=== PATIENT | female | born 1935 | race Caucasian/White ===

== ENCOUNTER 2018-02-18 15:11 | Inpatient (IN) | payer MEDICARE, OTHER ==
[2018-02-18] MEDS ORDERED: Ondansetron HCl/PF 4 MG/2 ML Vial ONE ×2 (15:36→16:49)
--- NOTE | 2018-02-18 16:16 | RAD ---
SINGLE VIEW OF THE PELVIS: Comparison: None. History: Fall with hip pain. FINDINGS: Single view of the pelvis shows a fracture of the right femoral neck. No dislocation or the femoral h ead is seen. No degenerative changes are seen in either hip. IMPRESSION: Right femoral neck fracture. POS: [facility]
--- NOTE | 2018-02-18 16:21 | RAD ---
TWO VIEWS RIGHT HIP: History: Fall, right hip injury. FINDINGS: AP and frogleg views of the right hip obtained and demonstrates an acute subcapital left femoral neck fracture. There is some mild lateral displacement of the distal fracture fragment. IMPRESSION: Right subcapital right femoral neck fracture. POS: [facility]
[2018-02-18 16:47] LABS: #Basophils 0.1 thou/uL (0.0-0.2); #Lymphocytes 1.4 thou/uL (1.20-3.40); #Monocytes 0.5 thou/uL (0.11-0.59); #Neutrophils 8.6 thou/uL (1.40-6.50); %Basophils 0.5 % (0.0-1.0); %Eosinophils 0.4 % (0.0-10.0); %Lymphocytes 13.3 % (21.0-51.0); %Monocytes 4.6 % (0.0-10.0); %Neutrophils 81.1 % (42.0-75.0); Hemoglobin 13.6 g/dL (12.0-16.0); Mean Corpuscular HGB CONC 33.2 g/dL (32.0-36.0); Mean Corpuscular Hemoglobin 30.9 pg (27.0-31.0); Mean Corpuscular Volume 92.9 fL (78.0-98.0); Mean Platelet Volume 7.3 fL (7.4-10.4); Platelet Count 220 thou/uL (130-400); RBC Distribution Width 12.2 % (11.5-14.5); Red Blood Cell (RBC) Count 4.39 mill/uL (4.20-5.40); White Blood Cell (WBC) Count 10.5 thou/uL (4.8-10.8)
[2018-02-18] MEDS ORDERED: Dextrose 50% Abboject 50 ML SYRINGE SLOW IVP PRN (16:48)
[2018-02-18] MEDS ORDERED: Ondansetron HCl/PF 4 MG/2 ML Vial IVP PRN (16:48)
[2018-02-18] MEDS ORDERED: Dextrose 5% in Water 1,000 ML IV PRN (16:48)
[2018-02-18] MEDS ORDERED: Promethazine HCl 25 MG/ML VIAL IM PRN (16:48)
[2018-02-18] MEDS ORDERED: traMADol HCl 50 MG TAB PO PRN (16:51)
[2018-02-18 16:54] LABS: INR-International Normal Ratio 0.9; PTT 28.9 SEC (22.9-36.1); Prothrombin Time 12.5 SEC (12.0-14.7)
[2018-02-18 17:10] LABS: ALT (SGPT) 22 U/L (8-55); AST (SGOT) 23 U/L (5-34); Albumin 3.9 g/dL (3.4-4.8); Alkaline Phosphatase 92 U/L (40-150); Anion Gap 14 mmol/L (10-20); BUN (Urea Nitrogen) 21 mg/dL (9.8-20.1); Bilirubin, Total 0.4 mg/dL (0.2-1.2); Calc. Creatinine Clearance 0 mL/min (70-130); Calcium 9.2 mg/dL (7.8-10.44); Carbon Dioxide 27 mmol/L (23-31); Chloride 102 mmol/L (98-107); Estimated GFR-MDRD 65; Globulin 2.8 g/dL (2.4-3.5); Glucose 170 mg/dL (83-110); Potassium 3.4 mmol/L (3.5-5.1); Protein, Total 6.7 g/dL (6.0-8.3); Sodium 140 mmol/L (136-145)
--- NOTE | 2018-02-18 17:27 | RAD ---
CHEST ONE VIEW: 02/18/18 HISTORY: Preop. COMPARISON: None. FINDINGS: There is mild fullness in the right hilum. Heart size is upper limits of normal. Scarring in lingula. No pneumothorax or effusion. IMPRESSION: Fullness of the right hilum may reflect adenopathy, enlarged pulmonary trunk or less likely mass. Non emergent followup CT of the chest may be beneficial. POS: [facility]
[2018-02-18] MEDS ORDERED: CEFAZOLIN/Water 2 GM/20 ML SYRINGE SLOW IVP SCH (18:00)
[2018-02-18] MEDS ORDERED: Potassium Chloride 40 MEQ in Sodium Chloride 0.9% 500 ML IVPB SCH (18:45)
[2018-02-18] MEDS: Scopolamine 1.5 mg/72 hour Patch TD SCH (18:46)
[2018-02-18] MEDS: Acetaminophen 1,000 MG in Premix Bag 1 BAG IVPB SCH (18:47)
[2018-02-18] MEDS: Ketorolac Tromethamine 30 MG/ML VIAL IVP SCH (18:47)
[2018-02-18] MEDS: Sodium Chloride 0.9% 1,000 ML IV SCH (18:56)
--- NOTE | 2018-02-18 23:42 | HP ---
DATE OF ADMISSION: 02/18/2018 ADMITTING PHYSICIAN: Jayro Smith D.O. CONSULTING PHYSICIAN: Dr. Greene, Orthopedics. HISTORY OF PRESENT ILLNESS: Ms. Saenz is an 83-year-old female who reports she was ambulating in her home when her foot got hung on a table leg and she fell to the floor, injuring her right hip. S he denies LOC. She denies any other complaint or injury. She was transported to [facility] where workup identified a right femoral neck fracture. Trauma Services has been consult ed for admission and management. Orthopedic Services has been consulted for management of fracture. PAST MEDICAL HISTORY: Hypertension. PAST SURGICAL HISTORY: Hysterectomy. SOCIAL HISTORY: Tobacco none. Alcohol none. Drugs none. CURRENT MEDICATIONS: Unknown antihypertensive/diuretic medication. ALLERGIES: CODEINE. DIAGNOSTIC IMAGING: Right femoral neck fracture. LABORATORY STUDIES: CBC: WBC 10.5, RBC 4.39, hemoglobin 13.6, hematocrit 40.8, platelets 220. Coag ulation: PT 12.5, INR 0.9. Chemistry: Sodium 140, potassium 3.4, chloride 102, carbon dioxide 27, BUN 21, creatinine 0.83, glucose 170, calcium 9.2. REVIEW OF SYSTEMS: Constitutional: Negative for fever, chills, generalized malaise, or recent weigh t loss. HEENT: Denies otorrhea, rhinorrhea, neck pain, or sore throat. Cardiovascular: Denies syn cope, palpitations, or chest pain. Respiratory: Denies wheezing, cough, or respiratory distress. G astrointestinal: Denies abdominal pain, nausea, vomiting, diarrhea, or constipation. Musculoskeleta l: Reports pain to right hip with movement. Reports fall. Genitourinary: Denies hematuria, dysuri a. Skin: Denies rashes, skin changes. Neurologic: Denies headache, focal weakness, or seizures. PHYSICAL EXAMINATION: VITAL SIGNS: Blood pressure 134/66, pulse 66, respirations 20, O2 saturation 97% room air. CONSTITUTIONAL: Well-developed, well-nourished female in no acute distress. HEENT: Atraumatic, normocephalic. Trachea midline. No posterior neck tenderness. RESPIRATORY: Bilateral breath sounds clear. Chest movement symmetrical. CARDIOVASCULAR: Regular rate and rhythm. Heart sounds normal. ABDOMEN: Soft, nontender, nondistended. Tenderness to right hip with palpation or movement. EXTREMITIES: Moves all extremities. Cap refill brisk. 2+ pulses all extremities. NEUROLOGIC: GCS 15, alert and oriented x3. SKIN: Warm, dry, normal in color. ASSESSMENT: 1. Status post mechanical fall. 2. Right femoral neck fracture. 3. Acute traumatic pain. 4. History of hypertension. PLAN: 1. Admit to surgical floor by Trauma Services. 2. Consult to Orthopedics. Discussed with Dr. Greene. Plans for OR tomorrow. 3. N.p.o. after midnight. 4. Reconcile home medications. 5. IV analgesia. 6. Antibiotics per Orthopedic Service. 7. Replace electrolytes as indicated. 8. Scopolamine patch for dizziness when moving. 9. PT, OT consult with orthopedic restrictions postoperatively. 10. Rehab referral. The patient was seen and examined with Dr. Smith who agrees with plan.
[2018-02-19] MEDS: Acetaminophen 1,000 MG in Premix Bag 1 BAG IVPB SCH ×4 (00:05→17:37)
[2018-02-19] MEDS: Ketorolac Tromethamine 30 MG/ML VIAL IVP SCH ×4 (00:05→17:37)
[2018-02-19 04:32] VITALS: BMI 31.2
[2018-02-19 06:05] LABS: Anion Gap 12 mmol/L (10-20); BUN (Urea Nitrogen) 21 mg/dL (9.8-20.1); Calc. Creatinine Clearance 67 mL/min (70-130); Calcium 8.5 mg/dL (7.8-10.44); Carbon Dioxide 25 mmol/L (23-31); Chloride 104 mmol/L (98-107); Estimated GFR-MDRD 69; Glucose 102 mg/dL (83-110); Potassium 4.5 mmol/L (3.5-5.1); Sodium 136 mmol/L (136-145)
[2018-02-19] MEDS: Sodium Chloride 0.9% 1,000 ML IV SCH ×2 (07:58→13:34)
[2018-02-19] MEDS ORDERED: Prevnar 13-Val Conj/PF 0.5 ML SYRINGE IM ONE (08:30)
--- NOTE | 2018-02-19 08:38 | CON ---
DATE OF CONSULTATION: 02/19/2018 ORTHOPEDIC CONSULTATION REQUESTING PHYSICIAN: Dr. Jayro Smith. BRIEF HISTORY OF PRESENT ILLNESS: Patient is a pleasant 83-year-old lady who [facility] with family at bedside. They report that earlier on the day of 02/18/2018, she caught he r foot on the leg of a table and sustained a fall landing on her right hip. She denies loss of consc iousness or head injury. Upon arrival at [place], her sole complaint was that of right groin pain . Workup included plain x-rays that demonstrated a displaced femoral neck fracture. As such, the pa tient now admitted to the Trauma Service and Orthopedic consultation requested. PAST MEDICAL HISTORY: Hypertension. PAST SURGICAL HISTORY: Hysterectomy. MEDICATIONS: She is on an antihypertensive and diuretic medication of unknown name. ALLERGIES: CODEINE. SOCIAL HISTORY: She denies history of smoking. Denies alcohol or drug use. REVIEW OF SYSTEMS: Denies recent fevers, chills or sweats. Denies chest pain or shortness of breath . Denies numbness or tingling in the lower extremity. FAMILY HISTORY: Noncontributory. PHYSICAL EXAMINATION: VITAL SIGNS: Temperature of 98.3 degrees, heart rate of 66, respiratory rate of 20, and blood pressu re 134/66. HEENT: Atraumatic, normocephalic. HEART: Shows a regular rate and rhythm without murmur. LUNGS: Clear to auscultation with good breath sounds bilaterally. Chest wall is nontender. ABDOMEN: Soft and nontender with normal bowel sounds. PELVIS: Stable to compression. With compression she does complain of some mild right groin pain. EXTREMITIES: Bilateral upper extremities atraumatic; left lower extremity also atraumatic at hip, kn ee and ankle. The right lower extremity is held in a slightly shortened and externally rotated postu re at the hip. She has groin pain with any movement of the leg. The knee is without effusion and ap pears atraumatic as is the ankle and foot. She is wiggling her toes. Her thigh and lower leg compar tments are soft. IMAGING DATA: AP pelvis and AP lateral x-ray of the right hip was obtained today and is remarkable f or a displaced femoral neck fracture with discontinuity between the neck and head. This is subcapita l fracture. LABORATORY DATA: White count of 10.5, hematocrit of 40.8 and 220,000 platelets. ASSESSMENT: An 83-year-old lady with history of ground level fall sustaining a right femoral neck fr acture. PLAN: At this time, patient will be admitted to Trauma Services. Our plan is to proceed to the oper ating room on 02/19/2018 for a right hip hemiarthroplasty. I have discussed with patient and her fam salvador risks and benefits of the surgery. Risks include but are not limited to bleeding, infection, ner ve injury, DVT, PE, dislocation, loss of limb or life. They appear to understand and do wish to proc eed. Consent will be obtained prior to surgery.
[2018-02-19] MEDS ORDERED: CEFAZOLIN/Water 2 GM/20 ML SYRINGE ONE (12:46)
[2018-02-19] MEDS ORDERED: Ketorolac Tromethamine 30 MG/ML VIAL ONE (12:46)
[2018-02-19] MEDS ORDERED: Fentanyl 100 MCG/2 ML VIAL ONE (13:39)
--- NOTE | 2018-02-19 13:41 | PRG ---
DATE OF SERVICE: 02/19/2018 ATTENDING PHYSICIAN: Dr. Jayro Smith. SUBJECTIVE: Ms. Saenz is an 83-year-old female, who was in her usual state of health yesterday w hen she was ambulatory through her kitchen floor and caught her foot on the leg of a table and sustai bere a fall landing on her right hip. She was evaluated in the emergency department and a right femor al neck fracture was identified. She was admitted to the hospital by Trauma Services. Dr. Greene, Orthopedics, was consulted and plans to take the patient to the OR today for fixation of the fractur e. OBJECTIVE: VITAL SIGNS: Temperature 98.4, pulse 69, respirations 14, O2 sat 94% on 1 liter nasal cannula, blood pressure 109/64. CONSTITUTIONAL: Elderly female, lying in bed in no acute distress. HEENT: Atraumatic, normocephalic. PULMONARY: Bilateral breath sounds clear. No respiratory distress. Incentive spirometer volumes ap proximately 1250. CARDIOVASCULAR: Regular rate and rhythm. ABDOMEN: Soft, nontender, nondistended. MUSCULOSKELETAL: Pain with movement of right hip and leg. Cap refill brisk in all extremities. A 2 + pulses all extremities. NEUROLOGIC: GCS of 15. Awake, alert, oriented x3. ASSESSMENT: An 83-year-old female with, 1. Ground-level fall. 2. Right femoral neck fracture. 3. Acute traumatic pain. 4. History of hypertension. PLAN: 1. Dr. Greene plans to take patient to OR today for fixation of fracture. 2. IV fluids, n.p.o. 3. Continue IV analgesia. We will transition to oral analgesia postoperatively. 4. PT/OT with orthopedic restrictions postoperatively. 5. SCDs for DVT prophylaxis. 6. Antibiotics per Orthopedic Service. 7. Case management for discharge planning. Rehab referral sent. The patient was seen and examined with Dr. Smith, who agrees with the plan.
[2018-02-19] MEDS ORDERED: Promethazine HCl 25 MG/ML VIAL IM PRN ×2 (14:56)
[2018-02-19] MEDS ORDERED: Promethazine HCl 25 MG/ML VIAL SLOW IVP PRN ×2 (14:56)
[2018-02-19] MEDS ORDERED: Ondansetron HCl/PF 4 MG/2 ML Vial IVP PRN ×2 (14:56)
--- NOTE | 2018-02-19 16:08 | OP ---
DATE OF SURGERY: 02/19/2018 PREOPERATIVE DIAGNOSIS: Right femoral neck fracture. POSTOPERATIVE DIAGNOSIS: Right femoral neck fracture. SURGICAL PROCEDURE: Right hip hemiarthroplasty. ANESTHESIA: General. SURGEON: Chencho Greene M.D. FELT CARBONIZER: Rhianna Madrid PA-C and Chris Nuñez PA-C. BLOOD LOSS: 200 mL. IMPLANTS: DePuy system was used with a Lytle size 5 stem, a 28 x 48 bipolar cup and a +8.5 mm head. COMPLICATIONS: None. DRAINS: None. SPECIMEN: None. OUTCOME: Stable hip hemiarthroplasty. INDICATIONS: The patient is an 83-year-old lady status post ground level fall sustaining a left femo ral neck fracture with displacement. After discussion with family and patient, including risks and b enefits, we decided to proceed with hemiarthroplasty to allow for early mobilization. Informed conse nt has been obtained. I believe all questions answered. DESCRIPTION OF PROCEDURE: The patient was brought to the operating room and a timeout performed foll owed by induction of general anesthesia. Next, patient was positioned in a left lateral decubitus po sition on the OR table and then a sterile prep and drape was performed of the right lower extremity. Next, a lateral incision was made centered over the greater trochanter. After skin was sharply inci sed, dissection was carried down bluntly to the underlying fascia patti and tensor fascia. This struc ture was incised in line with the skin incision and reflected anteriorly and posteriorly exposing the greater trochanteric bursa. The trochanteric bursa was swept off of the posterior proximal femur ex posing the short external rotators. Next, the piriformis was identified, tagged and released and ref lected posteriorly along with the superior and inferior gemelli. A retractor was placed under the ab ductors and then a cobra retractor placed in this allowing for exposure of the capsule. Next, a T ca psulotomy was performed and the hip was dislocated. An oscillating saw was used to make a femoral ne ck cut and then the head of the femur was removed. Next, a box chisel was used to obtain a starting point at the proximal femur. This was followed by T-handle awl followed by lateralizing reamer. Pro gressive T handle kumari were passed down the shaft of the femur up to a size 5. Broaching was starte d at size 3 and continued up to size 5, which provided good fit and fill. A trial reduction was then performed on the size 5 stem and a +8.5 head provided reasonable religion of leg length and good stability. The hip was then dislocated once again and the trial components were removed. The proxim al femur was irrigated with 3 liters of normal saline using Pulsavac and then the final implant was i nserted followed by placement of the bipolar head. The hip was then reduced and again found to have excellent stability. At this point, #2 Vicryl was used to reapproximate the capsule followed by #2 V icryl for the piriformis tendon. A #1 Vicryl was used for the fascia patti and tensor fascia followed by 0 Vicryl for Rosibel fascia, 2-0 Vicryl subcutaneously, and chandra for the skin. A Xeroform gauz e tape dressing was applied to the thigh and then patient was transferred to recovery room in stable condition. There were no complications. She tolerated the procedure well.
--- NOTE | 2018-02-19 17:30 | RAD ---
TWO VIEWS RIGHT HIP: 02/19/18 HISTORY: Postoperative changes. Hip fracture. COMPARISON: 02/18/18. FINDINGS: There has been interval postsurgical changes related to placement of a right total hip prosthesis. No hardware complication is seen. There is no fracture or dislocation. Subcutaneous emphysema is seen a bout the right hip and skin clips are seen laterally. No other findings. IMPRESSION: Postsurgical changes related to placement of right total hip prosthesis. POS: [facility]
[2018-02-19] MEDS: CEFAZOLIN/Water 2 GM/20 ML SYRINGE SLOW IVP SCH (21:26)
[2018-02-19] MEDS ORDERED: CEFAZOLIN 2 GM in Sodium Chloride 0.9% 100 ML IVPB SCH (22:00)
[2018-02-20] MEDS: Ketorolac Tromethamine 30 MG/ML VIAL IVP SCH ×3 (01:14→12:01)
[2018-02-20] MEDS: Sodium Chloride 0.9% 1,000 ML IV SCH (01:19)
[2018-02-20] MEDS: CEFAZOLIN/Water 2 GM/20 ML SYRINGE SLOW IVP SCH (06:07)
[2018-02-20 10:53] LABS: #Lymphocytes 0.8 thou/uL (1.20-3.40); #Monocytes 0.7 thou/uL (0.11-0.59); #Neutrophils 14.2 thou/uL (1.40-6.50); %Lymphocytes 4.8 % (21.0-51.0); %Monocytes 4.2 % (0.0-10.0); Hemoglobin 12.1 g/dL (12.0-16.0); Mean Corpuscular HGB CONC 33.2 g/dL (32.0-36.0); Mean Corpuscular Volume 93.2 fL (78.0-98.0); Mean Platelet Volume 7.3 fL (7.4-10.4); Platelet Count 193 thou/uL (130-400); RBC Distribution Width 12.5 % (11.5-14.5); Red Blood Cell (RBC) Count 3.92 mill/uL (4.20-5.40); White Blood Cell (WBC) Count 15.6 thou/uL (4.8-10.8)
[2018-02-20] MEDS ORDERED: Acetaminophen 325 MG TAB PO PRN (16:04)
--- NOTE | 2018-02-20 19:41 | PRG ---
DATE OF SERVICE: 02/20/2018 SUBJECTIVE: The patient is postop day #1 status post right hip hemiarthroplasty, which she sustained after falling at ground level. She underwent the above procedure yesterday and tolerated this proce dure well today. She is awaiting to work with physical and occupational therapy. She is tolerating a diet and her pain is controlled. She had no reported events overnight. OBJECTIVE: VITAL SIGNS: Temperature is 98.4, heart rate 93, blood pressure 129/55, respirations 18, oxygen satu ration 91% on room air. GENERAL: The patient is resting comfortably in bed. She appears in no acute distress. HEENT: Unremarkable. LUNGS: Clear to auscultation bilaterally with good inspiratory and expiratory effort. HEART: Regular rate and rhythm. ABDOMEN: Soft, flat, nontender with active bowel sounds. EXTREMITIES: Neurovascularly intact x4. Postop dressing is clean, dry, and intact. ASSESSMENT AND PLAN: 1. Status post ground level fall. 2. Status post right femoral neck fracture, status post right hip hemiarthroplasty. Plan will be to continue supportive care, physical and occupational therapy, and rehabilitation asif hogan The evaluation and examination were done with Dr. Smith during rounds this morning.
[2018-02-20] MEDS: traMADol HCl 50 MG TAB PO PRN (21:00)
[2018-02-20] MEDS: Ibuprofen 600 MG TAB PO SCH (21:01)
[2018-02-21] MEDS: Ibuprofen 600 MG TAB PO SCH ×2 (06:03→14:55)
[2018-02-21] MEDS: traMADol HCl 50 MG TAB PO PRN ×2 (08:01→14:55)
[2018-02-21] MEDS ORDERED: Senokot 8.6 MG TAB PO SCH (09:00)
[2018-02-21] MEDS ORDERED: Docusate 100 MG CAP PO SCH (09:00)
[2018-02-21 16:37] VITALS: BP 117/74; TEMP 98.7
[2018-02-21] MEDS: Scopolamine 1.5 mg/72 hour Patch TD SCH (17:37)
== END 2018-02-21 18:10 | DRG 470 ==
LOC: ERS 15:11 → SURG A 18:19 → OBSVTOIN 02-19 10:36
PROVIDERS: ADMIT Surgery; ATTEND Surgery
PROC: 0SRR01Z Replacement of Right Hip Joint, Femoral Surface with Metal Synthetic Substitute, Open Approach (ICD-10-PCS; principal; 2018-02-19)
DX: S72.001A Fracture of unspecified part of neck of right femur, initial encounter for closed fracture (principal); G89.11 Acute pain due to trauma; W18.09XA Striking against other object with subsequent fall, initial encounter; Y92.000 Kitchen of unspecified non-institutional (private) residence as the place of occurrence of the external cause
CPT/HCPCS: 36415; 71045; 72170; 80048; 80053; 85025; 85610; 85730; 93005; 94640; 96374; 96375; G8978-GP-CM; G8979-GP-CK; G8987-GO-CK; G8988-GO-CI; J0131; J1885; J2270; J2405; J2550; J3010; J3480; J7050; J7620

== ENCOUNTER 2021-02-01 09:47 | Outpatient (CLI) | payer MEDICARE | END 2021-02-01 09:48 | disposition home or self-care (01) | LOC: BICULT 09:47 | PROVIDERS: ATTEND Nurse Practitioner Family | DX: R79.89 Other specified abnormal findings of blood chemistry (principal); N28.1 Cyst of kidney, acquired | CPT/HCPCS: 93975 ==

== ENCOUNTER 2021-05-24 14:38 | Outpatient (CLI) | payer MEDICARE | END 2021-05-24 14:39 | disposition home or self-care (01) | LOC: RAD-FRANK 14:38 | PROVIDERS: ATTEND Nurse Practitioner Family | DX: R05.9 Cough, unspecified (principal) | CPT/HCPCS: 71046 ==